=== PATIENT | male | born 2000 | race Caucasian/White ===

== ENCOUNTER 2019-08-14 19:04 | Emergency (ER) | payer BC, SELFPAY ==
[2019-08-14 19:07] VITALS: BP 136/83; PULSE 120; RESP 16; TEMP 37.8; O2SAT 99
--- NOTE | 2019-08-14 20:05 | DI.RAD_ITS ---
EXAM: XR CHEST 2V PA LATERAL INDICATION: cough, fever. COMPARISON: No exams were available for comparison TECHNIQUE: 2D digital imaging was performed. FINDINGS: The cardiac and mediastinal contours have a normal appearance. The lungs are well inflated and clear . No infiltrate or effusion is seen. No bony abnormalities are identified. IMPRESSION: Negative chest xray.
[2019-08-14] MEDS: Normal Saline Flush 10 ML SYR IVP (20:10)
[2019-08-14 20:21] LABS: HCT 46.5 % (40.0-50.0); HGB 15.6 g/dL (13.5-17.5); Mean Corp. HGB Concentration 33.5 g/dL (32.0-36.0); Mean Corpuscular Hemoglobin 29.4 pg (27.0-33.0); Mean Corpuscular Volume 87.7 fL (80-95); Mean Platelet Volume 10.4 fL (8.0-11.0); Platelet Count 159 x1000/uL (130-400); RBC Distribution Width 13.2 % (11.8-14.1); White Blood Cell Count 4.41 k/cumm (4.4-10.8)
[2019-08-14] MEDS: Normal Saline 1,000 ML 1000 ML IV (20:26)
[2019-08-14] MEDS: Acetaminophen 500 MG TAB 1000 MG PO (20:26)
--- NOTE | 2019-08-14 20:47 | DI.VRAD_ITS ---
PROCEDURE INFORMATION: Exam: XR Chest, 2 Views Exam date and time: 08/14/2019 20:06 Clinical history: 18 years old, male; Cough and fever; Patient HX: Cough, fever TECHNIQUE: Imaging protocol: XR of the chest Views: 2 views. COMPARISON: No relevant prior studies available. FINDINGS: Lungs: Patchy small nodular densities are suggested in the mid to lower lung zones, without micaela airspace consolidation. Pleural space: No pleural effusion. No pneumothorax. Heart/Mediastinum: No cardiomegaly. Bones/joints: No acute fracture. IMPRESSION: Patchy small nodular densities are suggested in the mid to lower lung zones, without micaela airspace consolidation. Consider early endobronchial disease or atypical infection in the setting of cough and fever. Dictated and Authenticated by: Deanna Juarez MD. Ordering:BRYAN Cabral MD
[2019-08-14 20:49] LABS: ALT 66 U/L (16-63); AST 57 U/L (15-37); Albumin 4.4 g/dL (3.4-5.0); Alkaline Phosphatase 84 U/L (46-116); Anion Gap 11.2 mmol/L (3-11); BUN 16 mg/dL (7-18); Bilirubin, Total 0.3 mg/dL (0.2-1.0); CO2 28.8 mmol/L (21.0-32.0); CREATININE 1.19 mg/dL (0.70-1.30); Calcium 9.1 mg/dL (8.5-10.1); Chloride 102 mmol/L (98-107); Glucose 100 mg/dL (70-100); Lipase 101 U/L (73-393); Potassium 3.6 mmol/L (3.5-5.1); Sodium 142 mmol/L (136-145); Total Protein 8.4 g/dL (6.4-8.2)
[2019-08-14 20:58] LABS: Absolute Eosinophil Count 0.13 k/cumm (0.0-0.7); Absolute Lymphocyte Count 1.68 k/cumm (1.2-3.4); Absolute Monocyte Count 0.26 k/cumm (0.11-0.7); Absolute Neutrophil Count 2.34 k/cumm (1.2-6.7); Atypical Lymphocytes % 21; RBC Morphology Normal
[2019-08-14 20:59] LABS: Diff Comment Manual Differential
[2019-08-14 21:17] LABS: Lactate 1.1 mmol/L (0.6-1.4)
[2019-08-14 22:13] VITALS: BP 128/72; PULSE 86; RESP 16; TEMP 36.8; O2SAT 99
--- NOTE | 2019-08-14 22:26 | ED.GENADUL_ITS ---
Discharge Plan Disposition Patient Disposition: HOME Condition: Good Discharge Details Chief Complaint: Nk/Back Pain Clinical Impression: Acute respiratory infection Primary Care Provider: None,None ED Provider: Marianna Mares Home Meds and New Rx's Prescriptions: New doxycycline hyclate 100 mg capsule 100 mg PO BID Qty: 20 RF: 0 No Action albuterol sulfate 90 mcg/actuation Hfa Aerosol Inhaler 2 puff INHALATION Q4H PRNRF: 0 Discharge Instructions Instructions: Upper Respiratory Infection (ED) Additional Instructions: Drink plenty of fluids. Use antibiotic as prescribed. Rest activities as tolerated. Increase vitamin C. Follow-up with primary care doctor if not improving the next 3 to 5 days. Use inhaler as previously prescribed if needed. Return for any worsening, alarming or concerns sooner if needed Stand Alone Forms: School Release, Work Release Medical Decision Making Is a 18-year-old gentleman who presents to the emergency room for 2 weeks of illness. Patient reports predominant complaints related to febrile sensation in the evenings and cough. Patient reports intermittently productive cough. Patient reports coughing fits cause gagging. Patient also has associated nasal congestion, sinus pressure. On exam has moderate pharyngeal erythema. Strep testing is negative. Patient has associated cervical lymphadenopathy there are 2 predominant lymph nodes which are the most swollen one on the right the other on the left mildly tender at the site no overlying cellulitis. Patient's breath sounds are clear. Patient is breathing easily. On presentation patient noted to be mildly tachycardic and have a low-grade fever. Patient appears mildly pale. Patient does report associated belching and feeling quite anxious as he does report significant anxiety related to coming to the doctor's. Labs ordered given patient's complaints of 2 weeks of illness in conjunction with his coughing and tachycardia at this time which patient attributes to being anxious regarding being here. Patient's labs reveal no significant leukocytosis or shift. Patient has mild elevation of his LFTs. Patient has no elevation of his lactic acid at this time. Patient was provided IV fluid as well as Tylenol. After administration patient vital signs significantly improved. Patient's chest x-ray does reveal a patchy small nodular densities that are suggested in the mid and lower lung zones without micaela airspace consolidation. Consider endobronchial disease or atypical infection in the setting of cough and fever. Will provide patient appropriate antibiotic coverage specifically doxycycline for 10 days. Patient agrees with plan of care. Encourage prompt follow-up with his primary care doctor specifically by the end of the week. Patient agrees with plan of care. The patient was stable and requested discharge. Prior to discharge, my usual and customary return precautions were reviewed with the patient - this included follow-up instructions and reasons to return to the Emergency Department if conditions worsens, does not improve as expected, or other new concerns arise. HPI General Date/Time Provider Initiated Documentation: 08/14/19 19:21 . HPI Narrative: Is a 18-year-old man who presents to the ER today for 2 weeks of illness. Patient reports nasal congestion and cough with associated night sweats and fever. Patient denies any recent travel. Patient denies headache or dizziness. Patient reports eating and drinking without difficulty. Patient does report sinus pressure in the forehead. Patient denies significant ear pain. Patient does report some intermittent difficulty breathing, history of asthma. Has been using his inhalers. Denies wheezing or difficulty breathing currently. Patient reports 2 areas of swelling in his neck which are mildly uncomfortable. Denies neck pain with range of motion. Patient does report occasional dry heaving. Patient does report he gets extremely anxious when he comes to the hospital he does hiccup and vomit when he becomes anxious. He has noted that worsening prior to arrival. Denies abdominal pain or bowel changes. Urinating without difficulty. Related Data Home Medications Medication Instructions Recorded Confirmed albuterol sulfate 2 puff INHALATION Q4H PRN 08/14/19 08/14/19 doxycycline hyclate 100 mg PO BID #20 cap 08/14/19 Previous Rx's Medication Instructions Recorded doxycycline hyclate 100 mg PO BID #20 cap 08/14/19 Allergies Allergy/AdvReac Type Severity Reaction Status Date / Time No Known Allergies Allergy Unverified 08/14/19 19:17 General Stated Complaint: Nk/Back Pain MARIAMA: 3 Review of Systems All systems reviewed & are unremarkable except as noted in HPI and below Constitutional Constitutional: Reports chills, Reports fatigue, Reports fever(s), Denies headache(s) and Reports malaise ENT Ears, Nose, Mouth, and Throat: Denies dizziness, Denies otalgia, Denies headache(s), Reports nasal discharge, Denies nasal obstruction, Denies tinnitus, Reports sinus pain, Reports sinus pressure and Denies sore throat Respiratory Respiratory: Reports cough and Denies pain with cough Gastrointestinal Gastrointestinal: Denies abdominal pain, Denies diarrhea and Reports nausea Neurologic Neurologic: Denies dizziness and Denies headache(s) Endocrine Endocrine: Reports fatigue Exam Narrative Exam Narrative: CONST: Mildly pale, in no acute distress. Well hydrated. Alert a nd alert. HENMT: Head nomocephalic, normal to inspection. Atraumatic. Hearing grossly normal. Right TM obscured by wax, left TM normal in appearance without erythema or bulging. Pharyngeal erythema present without exudate EYES: General normal appearance. Alignment normal. Eyelids normal. Conjunctiva normal. NECK: Normal visual inspection. FROM. Trachea midline. No Midline tenderness. Cervical lymphadenopathy present bilaterally, prominent lymph node noted on the right as well as a prominent lymph node noted on the left. No overlying erythema CHEST: Normal insepection of the chest. RESP: Normal respiratory effort. Speaking full sentences. No cough. No audible wheezing. No retractions. Breath sounds are equal and full bilaterally, no rhonchi, rales or wheezing CARDIO: No JVD. No murmurs, rubs or gallops, regular rate and rhythm GI; abdomen is soft, nontender, no rebound, guarding or peritoneal signs on exam MUSCULOSKELETAL: Normal Gait. FROM of all extremities. Course Vital Signs Vital signs: Vital Signs Temperature 37.8 C H 08/14/19 19:07 Pulse 120 H 08/14/19 19:07 Respiratory Rate 16 08/14/19 19:07 Blood Pressure 136/83 08/14/19 19:07 Pulse Oximetry 99 08/14/19 19:07 Temperature 36.8 C 08/14/19 22:13 Temperature Source Temporal Artery Scan 08/14/19 22:13 Pulse 86 08/14/19 22:13 Respiratory Rate 16 08/14/19 22:13 Respiratory Effort Non-Labored 08/14/19 19:16 Blood Pressure 128/72 08/14/19 22:13 Blood Pressure Position Sitting 08/14/19 19:07 Pulse Oximetry 99 08/14/19 22:13 Oxygen Delivery Method Room Air 08/14/19 22:13 Oxygen Flow Rate 0 08/14/19 22:13 Pain Level 0 08/14/19 19:07 Lab/Test Results Lab/Test Results: 08/14/19 21:03 Blood Blood Culture - Pending 08/14/19 20:40 Blood Blood Culture - Pending 08/14/19 20:04 Pharynx Streptococcus Screen (SHAUN) - Pending Laboratory Tests Range/Units 08/14/19 08/14/19 08/14/19 20:10 20:10 21:03 WBC (4.4-10.8) k/cumm 4.41 RBC (4.50-6.00) m/cumm 5.30 Hgb (13.5-17.5) g/dL 15.6 Hct (40.0-50.0) % 46.5 MCV (80-95) fL 87.7 MCH (27.0-33.0) pg 29.4 MCHC (32.0-36.0) g/dL 33.5 RDW (11.8-14.1) % 13.2 Plt Count (130-400) x1000/uL 159 MPV (8.0-11.0) fL 10.4 Immature Gran % See Differential Neutrophils % 48.0 Band Neutrophils % % 5.0 Lymphocytes % 17.0 Atypical Lymphs % 21 Monocytes % 6.0 Eosinophils % 3.0 Basophils % 0.0 Absolute Neutrophils (1.2-6.7) k/cumm 2.34 Absolute Lymphocytes (1.2-3.4) k/cumm 1.68 Absolute Monocytes (0.11-0.7) k/cumm 0.26 Absolute Eosinophils (0.0-0.7) k/cumm 0.13 Absolute Basophils (0.0-0.2) k/cumm 0.00 Differential Comment Manual differential RBC Morphology Normal Sodium (136-145) mmol/L 142 Potassium (3.5-5.1) mmol/L 3.6 Chloride (98-107) mmol/L 102 Carbon Dioxide (21.0-32.0) mmol/L 28.8 Anion Gap (3-11) mmol/L 11.2 H BUN (7-18) mg/dL 16 Creatinine (0.70-1.30) mg/dL 1.19 Estimated GFR/1.73 m2 (mL/min/1.73m2) >= 60.00 Glucose (70-100) mg/dL 100 Lactate (0.6-1.4) mmol/L 1.1 Calcium (8.5-10.1) mg/dL 9.1 Total Bilirubin (0.2-1.0) mg/dL 0.3 AST (15-37) U/L 57 H ALT (16-63) U/L 66 H Alkaline Phosphatase (46-116) U/L 84 Total Protein (6.4-8.2) g/dL 8.4 H Albumin (3.4-5.0) g/dL 4.4 Lipase (73-393) U/L 101 POC Strep Test-LASHA(Rapid) Start: 08/14/19 20:01 Freq: Status: Active Protocol: Document 08/14/19 20:02 CT (Rec: 08/14/19 20:02 CT [id number]) Strep test-LASHA(Rapid)-POC POC-Strep test-LASHA (Rapid) Negative POC-Strep test-LASHA (Rapid) Negative
[2019-08-14] MEDS: Doxycycline Hyclate 100 MG CAP PO (22:42)
[2019-08-14 22:43] VITALS: BP 128/72; PULSE 86; RESP 16; TEMP 36.8; O2SAT 99
== END 2019-08-14 22:45 | disposition home or self-care (01) ==
PROVIDERS: Student in an Organized Health Care Education/Training Program; Emergency Provider Physician Assistant
DX: J06.9 Acute upper respiratory infection, unspecified (principal)
CPT/HCPCS: 36410; 80053; 83690; 87040; 87880; 96360; 99284; 71046; 83605; 85025; 87081

== ENCOUNTER 2019-08-17 07:41 | Emergency (ER) | payer BC, SELFPAY ==
[2019-08-17 07:45] VITALS: BP 118/72; PULSE 82; RESP 16; TEMP 36.3; O2SAT 97
--- NOTE | 2019-08-17 08:30 | ED.GENADUL_ITS ---
Discharge Plan Disposition Patient Disposition: HOME Discharge Details Chief Complaint: GI Bleed Clinical Impression: Gastritis, Sigmoid thickening, Lymphadenopathy, Mononucleosis, Pulmonary nodule, Hepatic lesion, Elevated liver enzymes Primary Care Provider: Joan Bauer ED Provider: Kun Mohr Home Meds and New Rx's Prescriptions: New famotidine [Pepcid] 20 mg tablet 20 mg PO BID Qty: 60 RF: 0 Continued albuterol sulfate 90 mcg/actuation Hfa Aerosol Inhaler 2 puff INHALATION Q4H PRNRF: 0 Discontinued ibuprofen [IBU-200] 200 mg Tablet 600 mg PO Q6H PRNRF: 0 doxycycline hyclate 100 mg capsule 100 mg PO BID Qty: 20 RF: 0 Discharge Instructions Instructions: Gastritis (ED), Mononucleosis (ED), Pulmonary Nodules (ED) Additional Instructions: Please follow-up with your primary care physician. Call today to arrange timely outpatient follow-up. Be sure to discuss all diagnostic radiologic findings to ensure complete follow-up. You should have blood test repeated in 1 to 2 weeks. You have pending blood test at time of discharge. Be sure to discuss these results with your primary care physician. If repeat or pending blood tests are abnormal, you will need to be seen by infectious disease specialist. Return to the ER for any worsening or new concerning symptoms. Stand Alone Forms: Work Release Referrals: Joan Bauer [Primary Care Provider] - Bing Barragan DO [OSTEOPATHIC DOCTOR] - Discharge Data Discharge Date/Time-TO BE ENTERED AT DEPARTURE: 08/17/19 10:45 Medical Decision Making 8:40 --18-year-old male recently seen in the ED for 2 weeks of respiratory illness, has been taking doxycycline and ibuprofen, here today after episode of hematemesis. Patient has epigastric and left upper quadrant abdominal discomfort. He is more tender periumbilical and lower abdomen. Concern for gastritis vs ulcer likely adverse effect of medications. Bedside [id number] ultrasound reveals enlarged spleen, gallbladder appears normal, no free fluid. Consider mono. I will check a mono test. Given tenderness in lower abdomen, consider acute surgical process. Plan to obtain CT the abdomen pelvis. Will give Pepcid 20 mg IV. 9:42 -- CT interpreted by radiology: Gastric wall is prominent. Splenomegaly is noted. Liver lesion likely hemangioma noted. Focal wall thickening of the sigmoid colon noted. Some pericolonic lymphadenopathy noted. Left lower lobe nodule noted, recommend follow-up outpatient. Labs reviewed and mono is positive. AST, ALT and alk phos to have all increased significantly from recent prior. I have added on a hepatitis panel as well as HIV testing. Call to [facility] to request consultation. 9:52 -- Spoke with ID specialist at [facility], discussed ED presentation and course including all diagnostic results. She is reviewing case and will call back. 10:08 --spoke again with infectious disease who feels clinical picture is consistent with mono and recommended discharge with outpatient PCP follow-up. They recommend repeat LFT testing in 1 to 2 weeks and if still elevated and or hepatitis panel positive for HIV positive, would recommend outpatient infectious disease follow-up at that point. In speaking with radiology, I do think it may be important to have him follow-up with general surgery or gastroenterology for endoscopy and colonoscopy. HPI General Mode of arrival: ambulatory . Date/Time Provider Initiated Documentation: 08/17/19 08:03 . Limitations to Documentation: no limitations . Information obtained by: patient . HPI Narrative: 18-year-old male presents with chief complaint of blood-streaked vomit this morning. Patient was seen here in the emergency department on 08/14/2019 for 2 weeks of illness characterized by intermittent fever, sinus congestion, cough, pharyngeal erythema and notable cervical lymphadenopathy. Diagnostic labs revealed mild elevation of LFTs. Chest x-ray was interpreted by radiology as patchy small nod ular densities without consolidation. Patient was started on doxycycline to treat for respiratory illness and was advised to follow-up with his primary care physician. He notes that he has been taking medication as prescribed. He is also taking ibuprofen 600 mg every 6-8 hours of the last few days. He does state that he is been feeling somewhat better. This morning he woke up and felt sick and vomited blood-streaked vomit. He only vomited once. Episode was moderate with no modifiers. He does have some mild associated abdominal discomfort. Related Data Home Medications Medication Instructions Recorded Confirmed albuterol sulfate 2 puff INHALATION Q4H PRN 08/14/19 08/17/19 famotidine [Pepcid] 20 mg PO BID #60 tab 08/17/19 Previous Rx's Medication Instructions Recorded famotidine [Pepcid] 20 mg PO BID #60 tab 08/17/19 Allergies Allergy/AdvReac Type Severity Reaction Status Date / Time No Known Allergies Allergy Unverified 08/17/19 07:50 General Stated Complaint: GI Bleed MARIAMA: 3 Review of Systems All systems reviewed & are unremarkable except as noted in HPI and below Constitutional Constitutional: Denies fever(s) Cardiovascular Cardiovascular: Denies dyspnea Respiratory Respiratory: Reports cough (improving), Denies hemoptysis and Denies dyspnea Gastrointestinal Gastrointestinal: Reports abdominal pain (LUQ), Denies melena, Denies coffee ground emesis, Reports heartburn and Denies nausea PFSH Social History Smoking/Tobacco Use Status: Never Alcohol Intake: never Drug use: Never Do you feel safe at home: Yes Do you feel safe in your relationship?: Yes Exam Const General: cooperative and no acute distress HENNH General nose exam: external nose normal Mouth: moist mucous membranes Throat: posterior oropharynx normal Eyes Conjunctivae: normal conjunctivae Sclera: normal sclerae Neck Neck: trachea midline, supple and lymphadenopathy (ant cervical single left, single right) Resp Auscultation: clear to auscultation bilaterally, no rales, no rhonchi and no wheezes Cardio Jugular venous pressure: no JVD Rate: regular rate and not tachycardic Rhythm: regular rhythm GI Palpation: soft, not firm, no guarding, no masses, not rigid, tender in the LLQ, in the RLQ and periumbilically; with no rebound tenderness and No ascites Skin General skin exam: no rashes or lesions noted Neuro General: alert, awake, oriented x3 and tone normal Extrem General: no edema Psych Appearance: grossly normal Mental Status: mental status grossly normal Course Vital Signs Vital signs: Vital Signs Temperature 36.3 C L 08/17/19 07:45 Pulse 82 08/17/19 07:45 Respiratory Rate 16 08/17/19 07:45 Blood Pressure 118/72 08/17/19 07:45 Pulse Oximetry 97 08/17/19 07:45 Temperature 36.3 C L 08/17/19 07:45 Temperature Source Temporal Artery Scan 08/17/19 07:45 Pulse 82 08/17/19 07:45 Respiratory Rate 16 08/17/19 07:45 Respiratory Effort Non-Labored 08/17/19 07:49 Blood Pressure 118/72 08/17/19 07:45 Blood Pressure Position Supine 08/17/19 07:45 Pulse Oximetry 97 08/17/19 07:45 Oxygen Delivery Method Room Air 08/17/19 07:45 Oxygen Flow Rate 0 08/17/19 07:45 Pain Level 3 08/17/19 07:45
[2019-08-17] MEDS: Lactated Ringers 1,000 ML 125 ML IV (08:41)
[2019-08-17] MEDS: FAMOTIDINE 20 MG/50 ML BAG 100 MG IVPB (08:42)
[2019-08-17 08:48] LABS: Abs Immature Grans 0.02 k/cumm (0.0-0.09); HGB 15.4 g/dL (13.5-17.5); Mean Corp. HGB Concentration 33.5 g/dL (32.0-36.0); Mean Corpuscular Hemoglobin 28.8 pg (27.0-33.0); Mean Corpuscular Volume 86.1 fL (80-95); Mean Platelet Volume 10.8 fL (8.0-11.0); Platelet Count 136 x1000/uL (130-400); RBC 5.34 m/cumm (4.50-6.00); RBC Distribution Width 13.1 % (11.8-14.1); White Blood Cell Count 5.09 k/cumm (4.4-10.8)
[2019-08-17 08:55] LABS: Mono Screening POSITIVE (Negative)
[2019-08-17 08:58] LABS: Lipase 86 U/L (73-393)
[2019-08-17 09:03] LABS: INR 1.1 (0.9-1.1); Prothrombin Time 10.6 sec (9.3-11.0)
[2019-08-17 09:07] LABS: Absolute Lymphocyte Count 2.55 k/cumm (1.2-3.4); Absolute Monocyte Count 0.71 k/cumm (0.11-0.7); Absolute Neutrophil Count 1.68 k/cumm (1.2-6.7)
[2019-08-17 09:08] LABS: Absolute Basophil Count 0.05 k/cumm (0.0-0.2); Diff Comment Manual Differential; RBC Morphology Normal
[2019-08-17] MEDS: Normal Saline Flush 10 ML SYR IVP ×2 (09:09→09:10)
[2019-08-17 09:15] LABS: ALT 562 U/L (16-63); AST 530 U/L (15-37); Albumin 4.3 g/dL (3.4-5.0); Alkaline Phosphatase 316 U/L (46-116); Anion Gap 8.8 mmol/L (3-11); BUN 13 mg/dL (7-18); CO2 28.2 mmol/L (21.0-32.0); Calcium 9.3 mg/dL (8.5-10.1); Chloride 104 mmol/L (98-107); Glucose 101 mg/dL (70-100); Potassium 3.5 mmol/L (3.5-5.1); Sodium 141 mmol/L (136-145); Total Protein 8.1 g/dL (6.4-8.2)
--- NOTE | 2019-08-17 09:20 | DI.CT_ITS ---
EXAM: CT ABDOMEN PELVIS W CLINICAL HISTORY: lower abdominal and mid abd tender, vomiting blood TECHNIQUE: CT examination of the abdomen and pelvis was performed with a bolus infusion of 100 cc's of Omnipaque 350. COMPARISON: XR CHEST 2V PA LATERAL from 08/14/2019 FINDINGS: Images obtained through the lung bases show an indeterminate, noncalcified, 5 millimeter left basila r lung nodule, follow-up chest CT recommended in 6 months. Spleen is enlarged. Liver and spleen otherwise unremarkable except for a tiny low-attenuation right hepatic lobe lesion, too small to characterize, approximately 9 millimeters, likely cyst or hemangiom a. Gallbladder and bile ducts are CT normal. Pancreas unremarkable. There is suggestion of thickening of the gastric wall and prominence of the gastric folds raising the possibility of gastritis. Mild p rominence of lymph nodes noted at the gastroesophageal junction. Adrenals and kidneys unremarkable. No urinary tract calcification or obstruction. Abdominal aorta is of normal diameter and no major vascular abnormality is seen. No significant abdominal wall hernia identified. The patient reports he has had prior hernia surgery . Appendix is normal. No evidence of diverticulitis. There is apparent focal wall thickening of the r ectosigmoid junction with question of eccentric wall lesion, question of inflammatory or neoplastic l esion, foreign body reaction not excluded, history requested regarding instrumentation of the rectum . Urinary bladder unremarkable. Mild prominence of lymph nodes noted in right lower quadrant and retroperitoneal, nonspecific. No bu lky adenopathy is seen. IMPRESSION: 1. Question gastric wall thickening and prominent gastric folds, consider gastritis. 2. Question eccentric wall lesion/thickening of rectosigmoid junction. Colonoscopy and upper endosco py suggested for further evaluation of the gastric and colonic findings. 3. Splenomegaly and mild nonspecific adenopathy at multiple sites, patient reportedly is positive for mononucleosis. 4. Incidental 5 millimeter left lower lobe intrapulmonary nodule, six-month follow-up recommended.
[2019-08-17 10:32] VITALS: BP 132/74; PULSE 71; RESP 16; TEMP 36.7; O2SAT 97
[2019-08-17 10:50] VITALS: BP 132/74; PULSE 71; RESP 16; TEMP 36.7; O2SAT 97
[2019-08-18 12:37] LABS: HIV-1/2 Ag & Ab Screen Negative (NEGAT); Hepatitis A Antibody IgM Negative (NEGAT); Hepatitis B Core Antibody Negative (NEGAT); Hepatitis B surface Ag Negative (NEGAT); Hepatitis C Ab w Rflx HCV PCR Negative (NEGAT)
== END 2019-08-17 10:45 | disposition home or self-care (01) ==
PROVIDERS: Emergency Provider Student in an Organized Health Care Education/Training Program; PCP Family Medicine
DX: K29.01 Acute gastritis with bleeding (principal); B27.90 Infectious mononucleosis, unspecified without complication; R91.1 Solitary pulmonary nodule; R59.9 Enlarged lymph nodes, unspecified; K76.89 Other specified diseases of liver
CPT/HCPCS: 80053; 83690; 86704; 86709; 86803; 86850; 86900; 86901; 87340; 87389; 96361; 96365; 99284; 74177; 85025; 85610; 86308

== ENCOUNTER 2023-06-20 06:09 | Emergency (ER) | payer OTHER, SELFPAY ==
--- NOTE | 2023-06-20 06:12 | W.ED.GENAD ---
Discharge Plan Disposition Patient Disposition: Home Discharge Details Clinical Impression: Strain of left levator scapulae muscle Primary Care Provider: None,None ED Provider: Mack Gibson Home Meds and New Rx's Prescriptions: New diazepam 5 mg tablet 5 mg PO QHS PRNQty: 5 0RF Continued albuterol sulfate 90 mcg/actuation Hfa Aerosol Inhaler 2 puff INHALATION Q4H PRN Discharge Instructions Additional Instructions: You were seen in the emergency department for the discomfort in your shoulder. You received a trigger point injection. He also received diazepam. A short prescription of diazepam has been sent to your pharmacy. Please do not drive drink alcohol or operate any heavy machinery while taking diazepam. For your pain please take medications as follows: 1. Take acetaminophen (Tylenol), 1,000 mg (two 500 mg tabs) every 6 hours 2. Take ibuprofen (Advil), 400 mg every 6 hours. Please also return to the emergency department if you develop any numbness or tingling in your hands any color changes in your hand or if you have any other concerns. Discharge Data Discharge Date/Time-TO BE ENTERED AT DEPARTURE: 06/20/23 07:23 Medical Decision Making This is an overall very well-appearing normothermic and not tachycardic 22-year-old male with left posterior shoulder pain that is at the base of his neck concerning for myofascial etiology given tenderness and palpable muscle ball for which patient will receive trigger point injection. Please see separate procedure note. I considered thoracic outlet syndrome however the patient does not have a known extra rib and no recent injuries. He has no occipital headache nor loss of dexterity to suggest neurogenic thoracic outlet syndrome. No excessive activity to suggest increased risk for venous thoracic outlet syndrome. No pallor nor claudication to suggest arterial outlet syndrome. No abdominal pain to suggest referred pain from acute cholecystitis. No rash to area to suggest zoster. No pain out of proportion to suggest necrotizing soft tissue infection. Patient is not having chest pain and he lacks risk factors for ACS so I did not obtain ECG nor did I feel that troponin testing was necessary as I felt that the risks of false positives and subsequent downstream testing with possibility for iatrogenic harms outweighed the benefits. No cough to suggest pneumonia. Good range of motion in the neck so was not concerned for meningitis. Similarly no sore throat to suggest retropharyngeal abscess. Patient felt mildly improved following trigger point injection. He had no PDMP records so I gave him a short course of diazepam to try and correctional counselor/case manager him on dosing acetaminophen and ibuprofen. I counseled him on avoiding ethanol driving or operating any machinery while taking diazepam. I advised ED return if he developed any weakness pallor or cyanosis in his left hand or if he had any numbness or tingling in his left hand. Based on his intact neurological status my suspicion was exceedingly low for CVA so I did not feel that the patient required a CT head. We will proceed with empiric trial of expectant outpatient management. Chronic conditions affecting the care of the patient: N/A History obtained from an outside historian: N/A External record review: No [facility] [place] Diagnostic interpretations performed by me: Medications: Diazepam, acetaminophen, ibuprofen, Lidoderm, trigger point injection Social determinants of health affecting disposition: N/A Management discussed with: N/A Treatment/interventions considered: Imaging but deferred Response to therapies provided: Feeling improved following following treatment HPI General Date/Time Provider Initiated Documentation: 06/20/23 06:12. 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 He reports he usually goes to his chiropractor when he has similar pain and that they fix it. He has an upcoming appointment tomorrow with his chiropractor. He felt that he could not wait so he elected to come to the emergency department. He has taken no recent falls. He denies trauma to his left upper extremity. He denies abdominal pain chest pain shortness of breath. He has not been nauseous nor vomiting. He attempted treatment at home with 800 mg of ibuprofen last night at 8 PM and at 2 AM some methocarbamol. He has not noticed any rashes to his back. He denies routine tobacco and ethanol but does smoke marijuana. He has had previous symptoms similar to this on several occasions. He has no known history of cervical rib. No recent fevers nor chills. Related Data Home Medications Medication Instructions Recorded Confirmed albuterol sulfate 90 mcg/actuation 2 puff inhalation Q4H PRN 08/14/19 06/20/23 aerosol inhaler diazepam 5 mg tablet 5 mg PO QHS PRN #5 tabs 06/20/23 Previous Rx's Medication Instructions Recorded diazepam 5 mg tablet 5 mg PO QHS PRN #5 tabs 06/20/23 Allergies Allergy/AdvReac Type Severity Reaction Status Date / Time No Known Allergies Allergy Unverified 08/17/19 07:50 General MARIAMA: 3 PFSH All Active Problems (Updated 06/20/23 @ 07:06 by Mack Gibson MD) Strain of left levator scapulae muscle (Acute) Social History Smoking/Tobacco Use Status: Never Smoking risk assessment performed?: Yes Alcohol Intake: never Drug use: Occasionally Substance use type: marijuana Do you feel safe at home: Yes Do you feel safe in your relationship?: Yes Exam Narrative Exam Narrative: General: Well-appearing in no acute distress speaking in complete sentences. Head: Normocephalic, atraumatic. Eye: Extraocular eye movements intact. No conjunctival injection. No scleral icterus. Ear, nose, mouth, throat: Grossly normal inspection. Normal voice, handling secretions normally. Neck: Trachea midline. At the base of the left levator scapula I at the intersection of the trapezius muscle there is a tense myofascial ball that measures approximately 1 cm in diameter. This area is tender. There is no overlying skin changes. There is no significant erythema. No pain out of proportion. Cardiovascular: Well-perfused distal extremities. Respiratory: Nonlabored respiration. Gastrointestinal: Nondistended abdomen. Musculoskeletal: No edema. Moving all 4 extremities spontaneously. Left upper extremity with full range of motion. Left hand warm well perfused with 2+ left radial pulse. Sensation motor function intact in left hand across the radial, median, ulnar nerve distributions. Cap refill less than 2 seconds in left fingertips. Full range of motion left shoulder elbow and forearm. Skin: Normal for age and race, grossly normal temperature and turgor. No acute rash. Neurologic: Alert and appropriate, no apparent acute deficits. Psychiatric: Mood and manner are appropriate. Grooming and personal hygiene are appropriate. Procedures Other Description: Trigger point injection in left levator scapula muscle with dry needling and 0.2 mg 1% lidocaine using 25-gauge needle and a 5 cc syringe. Area was cleaned with alcohol prep. Verbal consent was obtained. Patient tolerated the procedure well.
[2023-06-20 06:15] VITALS: BP 155/100; PULSE 74; RESP 18; TEMP 36.6; O2SAT 98
[2023-06-20 06:20] VITALS: BP 152/95; PULSE 89; RESP 18
[2023-06-20] MEDS: Ibuprofen 600 MG TAB PO (07:18)
[2023-06-20] MEDS: Lidocaine 5% Patch 1 PATCH TP (07:18)
[2023-06-20] MEDS: diazePAM 5 MG TAB PO (07:18)
[2023-06-20] MEDS: Acetaminophen 500 MG TAB 1000 MG PO (07:18)
== END 2023-06-20 07:23 | disposition home or self-care (01) ==
PROVIDERS: Emergency Provider Emergency Medicine
DX: S46.811A Strain of other muscles, fascia and tendons at shoulder and upper arm level, right arm, initial encounter (principal); X58.XXXA Exposure to other specified factors, initial encounter
CPT/HCPCS: 20552; 99283

== ENCOUNTER 2023-06-22 20:48 | Emergency (ER) | payer OTHER, SELFPAY ==
[2023-06-22 20:59] VITALS: BP 181/89; PULSE 90; RESP 15; TEMP 36; O2SAT 97
--- NOTE | 2023-06-22 21:00 | DI.CT_ITS ---
Exam(s) CT THORAX CTA EXAM: CT THORAX CTA CLINICAL HISTORY: upper back pain. TECHNIQUE: Imaging Protocol: CT angiography of the chest was performed using pulmonary embolus rachelle col. Multi planar reconstructions were performed. CONTRAST MATERIAL: Intravenous: Omnipaque 350 Contrast volume: 100 cc COMPARISON: CT CT THORACIC SPINE RECONS from 06/22/2023 FINDINGS: CHEST: PULMONARY ARTERIES: There are no intraluminal filling defects to suggest acute pulmonary emboli. LUNGS: There are no infiltrates nor evidence of pulmonary infarction.. There are no pleural effusions . MEDIASTINUM: There is no hilar nor mediastinal adenopathy. Visualized thyroid unremarkable. CARDIAC: Heart size is upper normal. There is no pericardial effusion.Caliber of the thoracic aorta is within normal limits. Evidence of aortic dissection. There is no significant shift of the interve ntricular septum. PARTIALLY VISUALIZED UPPERMOST ABDOMEN: Hepatic steatosis evident. No splenomegaly. No adrenal mass es. OSSEOUS: No significant osseous lesions.. IMPRESSION: 1. No evidence of acute pulmonary emboli. No evidence of pulmonary infarction.No pleural effusions. 2. No evidence of aortic dissection. No pericardial effusion. Heart size normal. 3. No significant findings. RADIATION DOSE DELIVERED: Total DLP DATA REPOSITORY: All CT scans at this facility are submitted to the National Radiology Data Registry (NRDR) Dose Index Registry (DIR) with the [employer] (ACR). RADIATION OPTIMIZATION: All CT scans at this facility use at least one of these dose optimization te chniques: automated exposure control; mA and/or kV adjustment per patient size (includes targeted exa ms where dose is matched to clinical indication); or iterative reconstruction.
--- NOTE | 2023-06-22 21:00 | DI.CT_ITS ---
Exam(s) CT CERVICAL SPINE WO EXAM: CT CERVICAL SPINE WO CLINICAL HISTORY: left lateral neck pain. TECHNIQUE: Imaging Protocol: Axial computed tomography images with coronal and sagittal reformatted images were created and reviewed COMPARISON: No exams were available for comparison FINDINGS: CERVICAL SPINE: Neck is held in flexion. There is no evidence of acute fracture. No significant prevertebral soft tissue swelling. No significant listhesis. Mild disc space narrowing at C6-7 level and anterior osseous lipping. Also small Luschka joint osteo phytes evident at this level. There appears to be disc bulge at this level. Facet arthropathy evident but no significant facet joint malalignment. No significant osseous lesions evident. IMPRESSION: No evidence of cervical spine fracture, malalignment, nor acute compromise of the cervical spinal can al. C6-7 findings as above. If clinically indicated follow-up MRI can be for added sensitivity and speci ficity. RADIATION DOSE DELIVERED: 684.23mGy.cm Total DLP DATA REPOSITORY: All CT scans at this facility are submitted to the National Radiology Data Registry (NRDR) Dose Index Registry (DIR) with the [employer] (ACR). RADIATION OPTIMIZATION: All CT scans at this facility use at least one of these dose optimization te chniques: automated exposure control; mA and/or kV adjustment per patient size (includes targeted exa ms where dose is matched to clinical indication); or iterative reconstruction.
--- NOTE | 2023-06-22 21:00 | RT.EKG_ITS ---
APPROVED REPORT Exam: Resting ECG Reason for Exam: hypertension Patient Location: E HR:76 bpm ECG Measurements Heart Rate 76 AXIS NC 143 P 61 QRSd 86 QRS 17 QT 366 T 17 QTc 411 Conclusion Sinus rhythm...normal P axis, V-rate 60- 99
--- NOTE | 2023-06-22 21:07 | DI.CT_ITS ---
Exam(s) CT THORACIC SPINE RECONS EXAM: CT THORACIC SPINE RECONS CLINICAL HISTORY: thoracic spine recons. Back pain TECHNIQUE: Imaging Protocol: Axial computed tomography images with coronal and sagittal reformatted images were created and reviewed. CONTRAST MATERIAL: Intravenous: None COMPARISON: CT CT ABDOMEN PELVIS W from 08/17/2019 FINDINGS: Bones: No evidence fracture or listhesis. No significant disc space narrowing. Facets unremarkable. No facet malalignment. No osseous lesions. Bone density normal. There is no scoliosis in the tho racic spinal column. IMPRESSION: No significant osseous findings in the thoracic spinal column. RADIATION DOSE DELIVERED: 619.78 mGy.cm Total DLP DATA REPOSITORY: All CT scans at this facility are submitted to the National Radiology Data Registry (NRDR) Dose Index Registry (DIR) with the [employer] (ACR). RADIATION OPTIMIZATION: All CT scans at this facility use at least one of these dose optimization te chniques: automated exposure control; mA and/or kV adjustment per patient size (includes targeted exa ms where dose is matched to clinical indication); or iterative reconstruction.
--- NOTE | 2023-06-22 21:09 | W.ED.GENAD ---
Discharge Plan Disposition Patient Disposition: Home Condition: Stable Discharge Details Clinical Impression: Bulging of cervical intervertebral disc, Back pain, thoracic Primary Care Provider: None,None ED Provider: Koko Soares Home Meds and New Rx's Prescriptions: New cyclobenzaprine 10 mg tablet 10 mg PO TID PRNQty: 20 0RF gabapentin 300 mg capsule 300 mg PO TID PRN (Reason: pain) Qty: 30 0RF Continued albuterol sulfate 90 mcg/actuation Hfa Aerosol Inhaler 2 puff INHALATION Q4H PRN Discontinued diazepam 5 mg tablet 5 mg PO QHS PRNQty: 5 0RF Discharge Instructions Additional Instructions: You have a bulging disc in your neck that is likely contributing to your pain. The rest of your cat scans and lab work did not show concerning findings follow up with a primary care provider, you should have your blood pressure checked and also if your pain continues you may need to have an MRI IF you feel more ill, have fevers or difficulty breathing return to the emergency department Medical Decision Making 22 yo male with no chronic medical problems comes in with 2 weeks of left upper back pain and states it happened [place] 2 [place] and hurt the left upper back. Denies head trauma, no chest pain or abdomen pain, no fevers. Was seen here 2 days ago and placed on valium for suspect muscle spasm. He arrives stable speaking clearly in no distress. He appears well, caox4 speaking clearly. HE is noted to be hypertensive otherwise stable vitals. HE has pain and tenderness with palpation to the left upper back, no midline t/l spine tenderness and also has left lateral neck pain. Full rom of the neck, no meninismus, no headaches. no focal deficits, CN II-XII intact. NO warmth or erythema of the shoulder, intact distal sensation, full rom of the shoulder. Suspect musculoskeletal pain but given continued pain will obtain cta of the chest to evaluate for possible dissection vs scapula fracture. Will also obtain ct c spine to evaluate for fracture. labs and imaging without significant findings, does have a c6/c7 disc bulge. HE is stable, discussed results with him and advised to f/u with his pcp and may need outpatient MRI, will provide flexeril and gabapentin, return precautions given. Differential Diagnosis Differential Diagnosis: musculoskeletal pain, dissection Medical Records Medical records reviewed: Yes I reviewed the patient's medical records. Imaging Data Radiologic Study: Attestation: I personally reviewed and interpreted this imaging study as follows: Imaging: CT Scan Radiologist's impression: PROCEDURE INFORMATION: Exam: CT Cervical Spine Without Contrast Exam date and time: 06/22/2023 9:38 PM Age: 22 years old Clinical indication: Patient HX: L lat neck pain TECHNIQUE: Imaging protocol: Computed tomography of the cervical spine without contrast. Radiation optimization: All CT scans at this facility use at least one of these dose optimization techniques: automated exposure control; mA and/or kV adjustment per patient size (includes targeted exams where dose is matched to clinical indication); or iterative reconstruction. COMPARISON: CR XR CHEST 2V PA LATERAL 08/14/2019 8:19 PM FINDINGS: Bones/joints: No acute fracture. Alignment is grossly maintained Mild chronic loss of vertebral body height noted. Disc bulging at C6-C7 with mild central canal stenosis. There is moderate left foraminal stenosis. Lungs: Lung apices are normal. Soft tissues: Unremarkable. IMPRESSION: No acute findings Radiologic Study #2: Attestation: I personally reviewed and interpreted this imaging study as follows: Imaging: CT Scan Radiologist's impression: IMPRESSION: No acute findings. on cta of the chest Radiologic Study #3: Attestation: I personally reviewed and interpreted this imaging study as follows: Imaging: CT Scan Radiologist's impression: PROCEDURE INFORMATION: Exam: CT Thoracic Spine Without Contrast Exam date and time: 06/22/2023 9:42 PM Age: 22 years old Clinical indication: Pain in thoracic spine; Other: Pain in back and neck TECHNIQUE: Imaging protocol: Computed tomography of the thoracic spine without contrast. Radiation optimization: All CT scans at this facility use at least one of these dose optimization techniques: automated exposure control; mA and/or kV adjustment per patient size (includes targeted exams where dose is matched to clinical indication); or iterative reconstruction. COMPARISON: CT CERVICAL SPINE WO 06/22/2023 9:38 PM FINDINGS: Bones/joints: No acute fracture. Normal alignment. No significant disc bulge or herniation. No severe spinal canal stenosis. No significant neural foraminal narrowing. Soft tissues: Unremarkable. IMPRESSION: Unremarkable CT Spine. Lab Data Lab results reviewed: Yes I reviewed the patient's lab results. ECG Data Attestation: I personally reviewed and interpreted this ECG (s) as follows: Prior ECG tracings: not available for review Interpretation: sinus rate of 76 pr 143 no acute ischemic findings HPI General Mode of arrival: ambulatory. Date/Time Provider Initiated Documentation: 06/22/23 20:50. Limitations to Documentation: no limitations. Information obtained by: patient. History of Present Illness 22 year old M presents to the emergency department with the chief complaint of left upper back pain, described as moderate, Patient reports no radiation. Patient started experiencing this week(s) (2) and it has been constant. No relieving factors improve symptom(s), No exacerbating factors reported . Patient did receive the following treatments prior to arrival, NSAID Related Data Home Medications Medication Instructions Recorded Confirmed albuterol sulfate 90 mcg/actuation 2 puff inhalation Q4H PRN 08/14/19 06/20/23 aerosol inhaler cyclobenzaprine 10 mg tablet 10 mg PO TID PRN #20 tabs 06/22/23 gabapentin 300 mg capsule 300 mg PO TID PRN pain #30 caps 06/22/23 Previous Rx's Medication Instructions Recorded cyclobenzaprine 10 mg tablet 10 mg PO TID PRN #20 tabs 06/22/23 gabapentin 300 mg capsule 300 mg PO TID PRN pain #30 caps 06/22/23 Allergies Allergy/AdvReac Type Severity Reaction Status Date / Time No Known Allergies Allergy Unverified 08/17/19 07:50 General Stated Complaint: Orthopedic MARIAMA: 3 Review of Systems All systems reviewed & are unremarkable except as noted in HPI and below Constitutional Constitutional: Denies chills, Denies fever(s) and Denies weakness Cardiovascular Cardiovascular: Denies chest pain and Denies dyspnea Respiratory Respiratory: Denies cough and Denies dyspnea Gastrointestinal Gastrointestinal: Denies abdominal pain, Denies nausea and Denies vomiting Musculoskeletal Musculoskeletal: Denies joint swelling Neurologic Neurologic: Denies weakness PFSH All Active Problems (Updated 06/22/23 @ 22:06 by Koko Soares MD) Strain of left levator scapulae muscle (Acute) Bulging of cervical intervertebral disc (Acute) Back pain, thoracic (Acute) Social History Smoking/Tobacco Use Status: Never Smoking risk assessment performed?: Yes Alcohol Intake: never Drug use: Occasionally Substance use type: marijuana Housing: house Do you feel safe at home: Yes Do you feel safe in your relationship?: Yes Exam Const General: no acute distress Orientation: alert [facility] Head: normal to inspection Ears: external ears normal General nose exam: external nose normal Mouth: moist mucous membranes Eyes General: appearance normal, both eyes and all related structures Neck Neck: normal visual inspection Resp Effort & Inspection: normal respiratory effort and able to speak in complete sentences Auscultation: clear to auscultation bilaterally Cardio Jugular venous pressure: no JVD Rate: regular rate Heart Sounds: no murmurs GI Palpation: soft and nontender Back/Spine/Pelvis Back: No erythema and No warmth Skin General skin exam: no rashes or lesions noted Neuro General: patient alert and patient oriented x3 Extrem General: normal to inspection Psych Mental Status: mental status grossly normal Course Vital Signs Vital signs: Vital Signs Temperature 36 C L 06/22/23 20:59 Pulse 90 06/22/23 20:59 Respiratory Rate 15 06/22/23 20:59 Blood Pressure 181/89 H 06/22/23 20:59 Pulse Oximetry 97 06/22/23 20:59 Temperature 36 C L 06/22/23 20:59 Temperature Source Oral 06/22/23 20:59 Pulse 90 06/22/23 20:59 Respiratory Rate 15 06/22/23 20:59 Respiratory Effort Normal, Non-Labored 06/22/23 21:02 Blood Pressure 181/89 H 06/22/23 20:59 Blood Pressure Position Sitting 06/22/23 20:59 Pulse Oximetry 97 06/22/23 20:59 Oxygen Delivery Method Room Air 06/22/23 20:59 Oxygen Flow Rate 0 06/22/23 20:59 Pain Level 10 06/22/23 21:02
[2023-06-22] MEDS: Omnipaque 350 MG/ML 100 ML BTL IJ (21:21)
[2023-06-22] MEDS: Orphenadrine 60 MG/2 ML VIAL IVP (21:28)
[2023-06-22] MEDS: Ketorolac 15 MG/ML VIAL IVP (21:28)
[2023-06-22 21:29] LABS: Abs Immature Grans 0.02 10^3/uL (0.0-0.06); Absolute Basophil Count 0.06 10^3/uL (0.0-0.2); Absolute Eosinophil Count 0.52 10^3/uL (0.0-0.7); Absolute Lymphocyte Count 3.44 10^3/uL (1.2-3.4); Absolute Monocyte Count 0.75 10^3/uL (0.1-0.8); Basophils % 0.6; Eosinophils % 5.5; HCT 45.3 % (40.0-50.0); HGB 15.1 g/dL (13.5-17.5); Immature Grans % 0.2; Lymphocytes % 36.6; MCHC 33.3 % (32.0-36.0); MCV 87 fL (80-95); MPV 10.1 fL (8.0-11.0); Neutrophils % 49.1; Platelet Count 264 10^3/uL (130-400); RBC 5.21 10^6/uL (4.36-5.78); RDW 12.5 % (11.8-14.1); WBC 9.39 10^3/uL (4.4-10.8)
[2023-06-22] MEDS: Normal Saline - Diluent 50 ML VIAL IJ (21:42)
--- NOTE | 2023-06-22 21:51 | DI.VRAD_ITS ---
PROCEDURE INFORMATION: Exam: CT Cervical Spine Without Contrast Exam date and time: 06/22/2023 9:38 PM Age: 22 years old Clinical indication: Patient HX: L lat neck pain TECHNIQUE: Imaging protocol: Computed tomography of the cervical spine without contrast. Radiation optimization: All CT scans at this facility use at least one of these dose optimization techniques: automated exposure control; mA and/or kV adjustment per patient size (includes targeted exams where dose is matched to clinical indication); or iterative reconstruction. COMPARISON: CR XR CHEST 2V PA LATERAL 08/14/2019 8:19 PM FINDINGS: Bones/joints: No acute fracture. Alignment is grossly maintained Mild chronic loss of vertebral body height noted. Disc bulging at C6-C7 with mild central canal stenosis. There is moderate left foraminal stenosis. Lungs: Lung apices are normal. Soft tissues: Unremarkable. IMPRESSION: No acute findings. Dictated and Authenticated by: Josemanuel Mendoza MD. Ordering:CHAUNCEY Sutherland MD
[2023-06-22 21:53] VITALS: BP 147/78; PULSE 67; RESP 18; O2SAT 99
[2023-06-22 21:53] LABS: ALT 70 U/L (16-63); AST 30 U/L (15-37); Albumin 4.7 g/dL (3.4-5.0); Alkaline Phosphatase 68 U/L (46-116); Anion Gap 6.1 mmol/L (3-11); BUN 16 mg/dL (7-18); Bilirubin, Total 0.3 mg/dL (0.2-1.0); CO2 30.9 mmol/L (21.0-32.0); Calcium 9.5 mg/dL (8.5-10.1); Chloride 102 mmol/L (98-107); Estimated GFR 107.78 (mL/min/1.73m2); Glucose 95 mg/dL (74-106); Magnesium 2.3 mg/dL (1.8-2.4); Potassium 3.7 mmol/L (3.5-5.1); Sodium 139 mmol/L (136-145); TSH (W/Ref FT4) 1.85 uIU/mL (0.36-3.74); Total Protein 8.1 g/dL (6.4-8.2); Troponin I < 50 ng/L (<or=60)
--- NOTE | 2023-06-22 21:58 | DI.VRAD_ITS ---
PROCEDURE INFORMATION: Exam: CTA Chest With Contrast Exam date and time: 06/22/2023 9:42 PM Age: 22 years old Clinical indication: Other: Upper back pain TECHNIQUE: Imaging protocol: Computed tomographic angiography of the chest with contrast. Exam focused on the arteries. 3D rendering (Not supervised by radiologist): MIP and/or 3D reconstructed images were created by the technologist. Radiation optimization: All CT scans at this facility use at least one of these dose optimization techniques: automated exposure control; mA and/or kV adjustment per patient size (includes targeted exams where dose is matched to clinical indication); or iterative reconstruction. Contrast material: OMNIPAQUE 350; Contrast volume: 100 ml; Contrast route: INTRAVENOUS (IV); COMPARISON: CR XR CHEST 2V PA LATERAL 08/14/2019 8:19 PM FINDINGS: Pulmonary arteries: No pulmonary emboli. Aorta: Unremarkable. No aortic aneurysm. No aortic dissection. Lungs: Unremarkable. No consolidation. No masses. Pleural spaces: Unremarkable. No pneumothorax. No pleural effusion. Heart: Unremarkable. No cardiomegaly. No pericardial effusion. Lymph nodes: Unremarkable. No enlarged lymph nodes. Bones/joints: Unremarkable. No acute fracture. Soft tissues: Unremarkable. Hepatomegaly and diffuse fatty infiltration IMPRESSION: No acute findings. Dictated and Authenticated by: Josemanuel Mendoza MD. Ordering:CHAUNCEY Sutherland MD
--- NOTE | 2023-06-22 22:04 | DI.VRAD_ITS ---
PROCEDURE INFORMATION: Exam: CT Thoracic Spine Without Contrast Exam date and time: 06/22/2023 9:42 PM Age: 22 years old Clinical indication: Pain in thoracic spine; Other: Pain in back and neck TECHNIQUE: Imaging protocol: Computed tomography of the thoracic spine without contrast. Radiation optimization: All CT scans at this facility use at least one of these dose optimization techniques: automated exposure control; mA and/or kV adjustment per patient size (includes targeted exams where dose is matched to clinical indication); or iterative reconstruction. COMPARISON: CT CERVICAL SPINE WO 06/22/2023 9:38 PM FINDINGS: Bones/joints: No acute fracture. Normal alignment. No significant disc bulge or herniation. No severe spinal canal stenosis. No significant neural foraminal narrowing. Soft tissues: Unremarkable. IMPRESSION: Unremarkable CT Spine. Dictated and Authenticated by: Josemanuel Mendoza MD. Ordering:CHAUNCEY Sutherland MD
[2023-06-22] MEDS: Cyclobenzaprine 10 MG TAB, 3 TABS/BTL PO (22:12)
== END 2023-06-22 22:36 | disposition home or self-care (01) ==
PROVIDERS: Emergency Provider Emergency Medicine
DX: M50.323 Other cervical disc degeneration at C6-C7 level (principal); M48.02 Spinal stenosis, cervical region; M54.6 Pain in thoracic spine
CPT/HCPCS: 71275; 80053; 93005; 96374; 96375; 99285; J2360; 72125; 83735; 84443; 84484; 85025; 93010; J1885; J3490

== ENCOUNTER → 2023-07-28 02:38 | Outpatient (CLI) | payer OTHER, SELFPAY ==
--- NOTE | 2023-07-28 06:15 | DI.MRI_ITS ---
Exam(s) MR CERVICAL SPINE WO EXAM: MR CERVICAL SPINE WO CLINICAL HISTORY: Cervical pain,bulging of cervical intervertebral disc,m50.30 TECHNIQUE: Multiplanar multisequence MRI of the cervical spine was performed without intravenous con trast. COMPARISON: CT CT CERVICAL SPINE WO from 06/22/2023 FINDINGS: The examination is limited due to patient motion artifact. BONES: Vertebral body heights are maintained. Intervertebral disc spaces are normal. There is straigh tening of the normal cervical lordosis. This may be due to muscle spasm or patient positioning. Bon e marrow signal intensity is within normal limits. CERVICAL CORD: Craniovertebral junction is unremarkable. The cervical cord is normal size and signal intensity. SOFT TISSUES: Unremarkable. C2-3: No disc herniation or bulge is identified. No significant central spinal canal or neural forami nal stenosis. C3-4: No disc herniation or bulge is identified. No significant central spinal canal or neural forami nal stenosis C4-5: There is prominence of the osteophyte disc complex. There does appear to be a small right disc herniation. Mild narrowing of the central spinal canal is noted. There is mild right neural forami nal narrowing. No significant left neural foraminal stenosis is seen. C5-6: No disc herniation or bulge is identified. No significant central spinal canal or neural forami nal stenosis C6-7: There is prominence of the osteophyte disc complex causing mild narrowing of the central spinal canal. There is mild right neural foraminal narrowing. No significant left neural foraminal stenos is. C7-T1: No disc herniation or bulge is identified. No significant central spinal canal or neural sascha inal stenosis IMPRESSION: 1. At C4-C5 there is prominence of the osteophyte disc complex of the small right disc herniation. T he findings do result in mild narrowing of the central spinal canal and mild right neural foraminal s tenosis. 2. Prominence of the osteophyte disc complex at C6-C7 causing mild right neural foraminal stenosis. DATA REPOSITORY:
== END ==
PROVIDERS: PCP Nurse Practitioner Family; Visit Provider Nurse Practitioner Family
DX: M50.321 Other cervical disc degeneration at C4-C5 level (principal)
CPT/HCPCS: 72141